=== PATIENT | female | born 1950 | race Two or more races ===

== ENCOUNTER 2024-10-05 15:42 | Emergency (ER) | payer MEDICAID, SELFPAY ==
[2024-10-05 16:32] VITALS: BMI 23.4
[2024-10-05 16:33] VITALS: BP 149/76; PULSE 104; RESP 18; TEMP 37; O2SAT 95
--- NOTE | 2024-10-05 17:02 | PD.EDRME ---
Rapid Medical Screening Exam RME Arrival date/time: 10/05/24 15:42 74-year-old female with frequent SBO presents emergency department complaining of abdominal pain with nausea and vomiting since today. Chief Complaint: Abdominal Pain Time Seen by Provider: 10/05/24 17:01 Vital signs: Vital Signs Temperature 98.6 F 10/05/24 16:33 Pulse Rate 104 H 10/05/24 16:33 Respiratory Rate 18 10/05/24 16:33 Blood Pressure 149/76 H 10/05/24 16:33 Pulse Oximetry (%) 95 10/05/24 16:33 Oxygen Delivery Method Room Air 10/05/24 16:33
[2024-10-05] MEDS: ONDANSETRON ODT 4 MG TABRAP PO (17:07)
[2024-10-05 17:33] LABS: Basophils % (Auto) 0 % (0-2.5); Eosinophils % (Auto) 0 % (0-10); Hematocrit 32.8 % (36.0-46.0); Hemoglobin 10.9 g/dL (12.0-16.0); Immature Granulocytes % (Auto) 0 % (0-0); Immature Granulocytes Auto 0.03 Thou/mm3 (0.00-0.00); Lymphocytes % (Auto) 9 % (10-50); Mean Corpuscular HGB Conc 33.2 g/dl (31.0-37.0); Mean Corpuscular Hemoglobin 25.8 pg (25.0-35.0); Mean Corpuscular Volume 78 fL (80-100); Monocytes # (Auto) 0.6 Thou/mm3 (0.0-0.8); Monocytes % (Auto) 5 % (0-12); Neutrophils % (Auto) 85 % (37-80); Nucleated Red Blood Cell % 0 /100 WBC (0); Platelet Count 335 Thou/mm3 (140-440); RDW Standard Deviation 38.5 fL (36.4-46.3); Red Blood Count 4.23 Miln/mm3 (4.00-5.20); White Blood Count 10.6 Thou/mm3 (3.6-11.0)
[2024-10-05 17:47] LABS: Alanine Aminotransferase 13 U/L (10-49); Albumin, Serum 4.7 gm/dL (3.4-4.8); Alkaline Phosphatase 120 U/L (46-116); Anion Gap 8 (7-16); Aspartate Amino Transferase 18 U/L (0-34); BUN/Creatinine Ratio 16 Ratio (12-20); Blood Urea Nitrogen 14 mg/dL (9-23); Calcium 9.9 mg/dL (8.3-10.6); Calcium (Corrected) 9.9 mg/dL (8.5-10.1); Carbon Dioxide 20.9 mMol/L (20.0-31.0); Chloride 107 mMol/L (98-107); Creatinine (Component) 0.9 mg/dL (0.6-1.3); Estimated Creatinine Clearance 39.4 mL/min (>60); Glucose 131 mg/dL (74-106); Lipase 38 U/L (12-53); Osmolality,Calculated 274 (275-295); Potassium 3.8 mMol/L (3.4-5.1); Sodium 136 mMol/L (136-145); eGFR > 60 See Note
[2024-10-05 17:48] LABS: Bilirubin,Total 0.6 mg/dL (0.3-1.2); Globulin 2.4 gm/dL (2.3-3.5); Total Protein 7.1 gm/dL (5.7-8.2)
[2024-10-05 17:57] LABS: Collection Type, Urine Clean Catch
[2024-10-05 18:26] LABS: Bilirubin,Urine Negative (Negative); Blood,Urine Negative (Negative); Clarity,Urine Clear (Clear/Hazy); Color,Urine Lt-Yellow (Lt Yel-Yel); Culture Indicated,Urine Not Indicated; Glucose, Urine Negative (Negative); Ketones,Urine 1+ (Negative); Leukocyte Esterase,Urine Negative (Negative); Nitrite,Urine Negative (Negative); Protein,Urine Trace (Neg - Trace); RBC,Urine 3 /hpf (0-3); Specific Gravity,Urine 1.021 (1.001-1.035); Squamous Epithelial Cell,Urine < 1 /hpf (0-5); Urobilinogen,Urine Negative mg/dL (0.0-1.0); WBC,Urine 1 /hpf (0-5)
--- NOTE | 2024-10-05 20:34 | EDNOTE_ITS ---
ED Abdominal Pain RME/HPI General Chief Complaint: Abdominal Pain Stated complaint: ABD PAIN THAT BEGAN YESTERDAY Time seen by provider: 10/05/24 17:01 Arrival date/time: 10/05/24 15:42 RME / HPI RME / HPI narrative: 74-year-old female with frequent SBO presents emergency department complaining of abdominal pain with nausea and vomiting since today. Patient denies any fever. Patient denies any diarrhea or constipation. Related Data Home Medications ?Medication ?Instructions ?Recorded ?Confirmed amlodipine 10 mg tablet 10 mg PO QDAY 03/16/23 03/13/24 brimonidine 0.2 %-timolol 0.5 % 1 drp ophthalmic (eye) BID 03/16/23 03/13/24 eye drops cyclosporine 0.05 % eye drops in a 1 drp ophthalmic (eye) BID 03/16/23 03/13/24 dropperette tobramycin 0.3 %-dexamethasone 0.1 1 drp ophthalmic (eye) QDAY 03/16/23 03/13/24 % eye drops,suspension gabapentin 300 mg capsule 300 mg PO TID 05/07/23 03/13/24 acetaminophen 500 mg tablet 1,000 mg PO 2XD 03/13/24 03/13/24 diclofenac sodium 75 mg 75 mg PO 1XD 03/13/24 03/13/24 tablet,delayed release Previous Rx's ?Medication ?Instructions ?Recorded pantoprazole 40 mg tablet,delayed 40 mg PO QDAY 30 days #30 tabs 03/17/23 release (Protonix) metoclopramide HCl 10 mg tablet 10 mg PO Q6H PRN nausea and 10/05/24 (Reglan) vomiting #20 tabs pantoprazole 40 mg tablet,delayed 40 mg PO QDAY #14 tabs 10/05/24 release (Protonix) Allergies Allergy/AdvReac Type Severity Reaction Status Date / Time No Known Allergies Allergy Verified 10/05/24 15:45 Review of Systems Review of Systems Narrative Review of Systems: Review of system reviewed and within normal limits except mentioned in HPI ED Exam Narrative Physical exam: VITAL SIGNS: Reviewed. GENERAL APPEARANCE: Alert and interactive, follows commands, no acute distress, HEAD AND FACE: Non-traumatic. ENT: PERRL, pink conjunctivitis, eyelid no trauma, Mucous membrane moist. NECK: Supple, nontender, no nuchal rigidity. CHEST: No tenderness, no crepitus, no paradoxical movement, no retractions. LUNGS: Clear, well ventilated, symmetric, no rales, no wheezing, no ronchi, no stridor, good breath sounds bilaterally. HEART: Regular rate, regular rhythm, no murmur, no gallops. ABDOMEN: Soft, positive bowel sounds, nondistended, no guarding, epigastric tenderness, no rebound, no masses, RECTAL: Deferred. GENITAL: Deferred. NEUROLOGICAL: Gross motor function intact sensory function intact, Appropriate for age. MUSCULOSKELETAL: low back nontender, full range of motion. EXTREMITIES: Nontender, full range of motion. SKIN: Color pink, dry, no rash, no lacerations, no abrasions, no contusions. LYMPHATICS: Deferred. Course Quality Measures none Orders Category Date Time Status CBC Stat Lab 10/05/24 17:20 Completed CMP [Comprehensive Metabolic Panel] Stat Lab 10/05/24 17:20 Completed Lipase Stat Lab 10/05/24 17:20 Completed Urinalysis, C/S if Indicated Stat Lab 10/05/24 17:45 Completed Ondansetron Odt [Zofran Odt] Med 10/05/24 17:01 Discontinued 4 mg PO X1 ONE Vital Signs Vital signs: Vital Signs Temperature 98.6 F 10/05/24 16:33 Pulse Rate 104 H 10/05/24 16:33 Respiratory Rate 18 10/05/24 16:33 Blood Pressure 149/76 H 10/05/24 16:33 Pulse Oximetry (%) 95 10/05/24 16:33 Oxygen Delivery Method Room Air 10/05/24 16:33 Abdominal Pain MDM MDM Narrative MDM Narrative:: 74-year-old female with frequent SBO presents emergency department complaining of abdominal pain with nausea and vomiting since today. Patient denies any fever. Patient denies any diarrhea or constipation. Patient's workup today all came back unremarkable. I spoke with patient's daughter who refused CT scan of the abdomen after I suggested that the need to do CT scan to rule out small bowel obstruction. Patient daughter told me that patient's been admitted here for several times, thinking that it was a small bowel obstruction however after the barium swallow there was no bowel obstruction, patient daughter told me that he was instructed by Dr. Newman, patient's surgeon that patient does not need anymore CT scan of the abdomen if patient presented to the emergency room for abdominal pain. They requested patient be given morphine IM and patient is okay to discharge home according to them. Plan of care discussed with the patient and told me that she just needed morphine and she will go home. Patient data External records reviewed:: None Clinical information provided by:: none Social determinants that could affect healthcare access:: none Patient has the following chronic illnesses:: Hypertension, cancer associated pain, ovarian carcinoma How is presenting disease/condition affected by chronic disease/condition?: exacerbated by Evaluation data The following diagnostics were reviewed and interpreted by me:: lab results Lab and/or radiology exams considered but not ordered:: None Interpretation Summary: Patient's workup workup all came back unremarkable. Medications / Prescriptions Medications or Prescriptions considered but not ordered:: None Medication administrations:: Medication Administration History Discontinued Medications Ondansetron HCl (Ondansetron Odt 4 Mg Tabrap) 4 mg PO X1 ONE; Protocol Stop: 10/05/24 17:02 Last Admin: 10/05/24 17:07 Dose: 4 mg Documented By: RAY Galindo and morphine Consultations Consultation(s) initiated? (list below): No Diagnosis Differential diagnosis abdominal pain: abdominal pain, constipation and small bowel obstruction Most likely diagnosis given after review of the tests above:: Pain related to cancer, abdominal pain Admission Indicated Admission indicated?: not indicated Explain why admission is indicated or not indicated:: Stable Admission Request Was there a request for admission?: No Disposition Plan Disposition Plan: Discharge Discharge Attestation Discharge Attestation: The patient and all family members were given an opportunity to ask questions an d understood the discharge instructions. Discharge instructions specifically effects, indications for sooner follow up or return to the emergency department, and the expected course of current diagnosis. Patient condition: Stable Discharge Plan Plan Patient Disposition: HOME (Self Care) Disposition Comment: Stable Prescriptions/Referrals Prescriptions/Med Rec: New metoclopramide HCl [Reglan] 10 mg tablet 10 mg PO Q6H PRN (Reason: nausea and vomiting) Qty: 20 0RF pantoprazole [Protonix] 40 mg tablet,delayed release (DR/EC) 40 mg PO QDAY Qty: 14 0RF No Action amlodipine 10 mg tablet 10 mg PO QDAY Patient Comments: TAKE 1 TABLET BY MOUTH EVERY DAY tobramycin-dexamethasone 0.3-0.1 % drops,suspension 1 drp OPHTHALMIC (EYE) QDAY Patient Comments: INSTILL 1 DROP INTO BOTH EYES EVERY DAY brimonidine-timolol 0.2-0.5 % drops 1 drp OPHTHALMIC (EYE) BID Patient Comments: INSTILL 1 DROP INTO BOTH EYES TWICE A DAY cyclosporine 0.05 % dropperette 1 drp OPHTHALMIC (EYE) BID Patient Comments: INSTILL 1 DROP INTO BOTH EYES TWICE A DAY pantoprazole [Protonix] 40 mg tablet,delayed release (DR/EC) 40 mg PO QDAY 30 Days Qty: 30 2RF gabapentin 300 mg capsule 300 mg PO TID Patient Comments: TAKE 1 CAPSULE BY MOUTH 3 TIMES PER DAY TOLERATED acetaminophen 500 mg Tablet 1,000 mg PO 2XD diclofenac sodium 75 mg Tablet,Delayed Release (Dr/Ec) 75 mg PO 1XD Referrals: No Primary/Family,Physician [Primary Care Provider] - In 1 week Problem List Clinical Impression: Cancer associated pain, Abdominal pain Patient/Caregiver Discharge Instructions Discharge Activity: activity as tolerated Education Materials: Abdominal Pain Additional Instructions: Thank you for the opportunity for serving you today. You are stable for discharged . You are advised to: Follow-up with your PCP in 1 to 2 days Return to ED for worsening of symptoms, fever, vomiting Increase oral fluids Take medication as prescribed Continue taking Tylenol as needed Print Language: Macedonian Stand Alone Forms: Yuli Award Info., Patient Portal Info Letter DIAZ/LEVAR Supervising Physician DIAZ/LEVAR Supervising Physician: MD Dorothea
[2024-10-05 21:22] VITALS: BP 133/82; PULSE 95; RESP 16; TEMP 37.2; O2SAT 96
[2024-10-05] MEDS: METOCLOPRAMIDE 5 MG TABLET 10 MG PO (21:23)
[2024-10-05] MEDS: MORPHINE SULF INJ 10 MG/ML VIAL 5 MG IM (21:24)
== END 2024-10-05 22:19 | disposition home or self-care (01) ==
PROVIDERS: Emergency Provider Emergency Medicine
DX: G89.3 Neoplasm related pain (acute) (chronic) (principal); R10.9 Unspecified abdominal pain
CPT/HCPCS: 36415; 80053; 81001; 83690; 85025; 96372; 99284; J2270; Q0162; A9270

== ENCOUNTER → 2025-06-25 | Outpatient (CLI) | payer MEDICAID, SELFPAY ==
--- NOTE | 2025-06-25 12:20 | XR_ITS ---
Examination: Bone densitometry Date and time of exam:June 25, 2025 1250 hours INDICATIONS: Menopause age 58 vitamin D 3 years personal history osteoporosis Technique: Lumbar spine and hip total bone mineralization values of an calculated. Peak reference and age match control results have been displayed. Findings: Lumbar spine total bone mineralization is0.781 gm/cm2. This is 2.4 standard deviations below peak reference. This is 0.0 standard deviations at age-matched controls. Hip total bone mineralization is 0.757 gm/cm2 This is 1.5 standard deviations below peak reference. This is 0.3 standard deviations above age-matched controls Impression: There is osteopenia based on lumbar spine measurements. There is osteopenia based on hip measurements Lumbar mineralization is increased 2.4% compared with February 03, 2023. Hip mineralization is increased 2.1% compared with February 03, 2023
== END | disposition home or self-care (01) ==
PROVIDERS: PCP Physician Assistant; Referring Provider Physician Assistant; Visit Provider Physician Assistant
DX: M85.89 Other specified disorders of bone density and structure, multiple sites (principal)
CPT/HCPCS: 77080

== ENCOUNTER → 2025-07-15 | Outpatient (CLI) | payer MEDICAID, SELFPAY ==
--- NOTE | 2025-07-15 15:59 | XR_ITS ---
Examination: PA lateral chest 2 views TECHNIQUE: Upright PA lateral chest 2 views Date and time: July 15, 2025 1615 hours INDICATIONS: Shortness of breath chest pain 3 days. FINDINGS: Normal heart size. Lungs are clear. Coronary artery calcification. No pneumonia or pulmonary edema Prominent osteopenia IMPRESSION: No pneumonia or pulmonary edema
== END | disposition home or self-care (01) ==
PROVIDERS: PCP Nurse Practitioner; Referring Provider Nurse Practitioner; Visit Provider Nurse Practitioner
DX: R06.02 Shortness of breath (principal)
CPT/HCPCS: 71046